=== PATIENT | male | born 1985 | race Caucasian/White ===

== ENCOUNTER 2016-12-23 09:16 | Emergency (ER) | payer OTHER ==
[2016-12-23 09:28] VITALS: BP 134/84
[2016-12-23] MEDS ORDERED: ACETAMINOPHEN 325 MG TABLET PO ONE (09:47)
--- NOTE | 2016-12-23 09:49 | ER Document Report ---
HPI - HPI Patient complains to provider of: head injury Onset: Other - 8:30 this morning Onset/Duration: Sudden Quality of pain: Achy Pain Level: 3 Context: Patient states he was bending over and turned standing up and hit the left side of his forehead on a large metal being. Patient denies any loss of consciousness, nausea, or vomiting. Patient states gradually he noticed that he has felt a little dizzy today. Associated Symptoms: Headache, Other - Dizziness. denies: Nausea, Vomiting Exacerbated by: Denies Relieved by: Denies Similar symptoms previously: No Recently seen / treated by doctor: No - ROS ROS below otherwise negative: Yes Systems Reviewed and Negative: Yes All other systems reviewed and negative - CONSTITUTIONAL Constitutional: DENIES: Fever, Chills - NEURO Neurology: REPORTS: Headache, Dizzinesss / Vertigo. DENIES: Weakness, Vision blurred - GASTROINTESTINAL Gastrointestinal: DENIES: Nausea, Patient vomiting - MUSCULOSKELETAL Musculoskeletal: REPORTS: Neck Pain. 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 IN LAST 30 DAYS: No - HEENT HEENT: Atraumatic, Normal ENT Exam, Normocephalic, PERRLA Notes: No hemotympanum, no raccoon or Coker signs, no fluid or drainage from ears or nose bilaterally - NECK Neck: Supple Notes: Patient with a posterior cervical paraspinal muscle tenderness, no midline tenderness, step-off, or deformity - RESPIRATORY Respiratory: Breath Sounds Normal, No Respiratory Distress O2 Sat by Pulse Oximetry: 97 - CARDIOVASCULAR Cardiovascular: Regular Rate, Regular Rhythm, No Murmur - BACK Back: Normal Inspection. negative: CVA Tenderness-Right, CVA Tenderness-Left - MUSCULOSKELETAL/EXTREMETIES Musculoskeletal/Extremeties: YORDY KHAN - NEURO Level of Consciousness: Awake, Alert, Appropriate Motor/Sensory: No Motor Deficit Notes: Normal Romberg, normal finger to nose testing, normal heel estrada, normal gait, normal rapid alternating movements, face symmetric, no focal neurologic deficit - DERM Integumentary: Warm, Dry, No Rash Course - Re-evaluation Re-evalutation: 12/23/16 09:54 Patient giving good return precautions. Discussed worsening signs or symptoms that patient should return immediately for. Patient verbalized understanding and agrees with plan of care. - Vital Signs Vital signs: Temp Pulse Resp BP Pulse Ox 98.3 F 82 18 134/84 H 97 12/23/16 09:23 12/23/16 09:23 12/23/16 09:23 12/23/16 09:23 12/23/16 09:23 Discharge - Discharge Clinical Impression: Head injury Qualifiers: Encounter type: initial encounter Qualified Code(s): S09.90XA - Unspecified injury of head, initial encounter Condition: Stable Disposition: HOME, SELF-CARE Instructions: Head Injury Precautions ([facility]), Acetaminophen Additional Instructions: Return immediately for any new or worsening symptoms Followup with your primary care provider, call tomorrow to make a followup appointment Follow-up with your Workmen's Compensation provider for follow-up Forms: Return to Work Referrals: IRAIS BEGUM PA-C [NO LOCAL MD] - Follow up as needed
== END 2016-12-23 09:50 | disposition home or self-care (01) ==
LOC: ER 09:16
DX: S09.90XA Unspecified injury of head, initial encounter (principal); R42 Dizziness and giddiness; M54.2 Cervicalgia; W22.09XA Striking against other stationary object, initial encounter; Y99.0 Civilian activity done for income or pay
CPT/HCPCS: 99283